=== PATIENT | male | born 1960 | race African-American/Black ===

== ENCOUNTER 2018-12-27 11:55 | Emergency (ER) | payer BC ==
[~2018-12-27] VITALS: Ht 167.6 cm; Wt 95.3 kg
[~2018-12-27 11:55] MED LIST: AFRIN120 MG; ALLERGY RELIEF10 M3; FLONASE 0.05%50 MCG; HYCODAN SYRUP480 ML PO; HYDROCHLOROTHIA25 M1; NAPROSYN500 MG; NAPROSYN500 MG PO; NORVASC 5 MG TAB5 MG; PREDNISONE 20 M20 M1 PO; PREDNISONE50 MG PO; PROAIR HFA8.5 GM; PROVENTIL HFA6.7 G1 INH; ROBITUSSIN DM118 ML; VENTOLIN HFA INH8 GM IH; ZOCOR 20 MG TAB20 M1; ZPAK PO
[2018-12-27] MEDS ORDERED: PRINIVIL20 MG PO (12:06)
[2018-12-27] MEDS ORDERED: ASMANEX HFA13 GM NASAL (12:08)
[2018-12-27] MEDS ORDERED: CLARITIN10 MG PO (12:09)
[2018-12-27] MEDS ORDERED: HYDROCHLOROTHIA25 M2 PO (12:10)
[2018-12-27] MEDS ORDERED: SINGULAIR 10 MG10 M1 PO (12:11)
[2018-12-27] MEDS ORDERED: LIPITOR40 MG PO (12:11)
[2018-12-27] MEDS ORDERED: ZANTAC 150MG T150 MG PO (12:11)
[2018-12-27] MEDS ORDERED: FLOVENT HFA 4444 MCG INH (12:13)
[2018-12-27] MEDS ORDERED: ZPAK PO (12:37)
[2018-12-27] MEDS ORDERED: PREDNISONE 20 M20 MG PO (12:37)
[2018-12-27 12:46] VITALS: BP 178/96
== END 2018-12-27 12:47 | disposition home or self-care (01) ==
LOC: M.ERS 11:55
DX: J45.901 Unspecified asthma with (acute) exacerbation (principal); I10 Essential (primary) hypertension; E78.5 Hyperlipidemia, unspecified; K21.9 Gastro-esophageal reflux disease without esophagitis

== ENCOUNTER 2019-07-09 08:23 | Emergency (ER) | payer BC ==
[~2019-07-09] VITALS: Ht 167.6 cm; Wt 90.7 kg
[~2019-07-09 08:23] MED LIST changes: +ASMANEX HFA13 GM NASAL; +CLARITIN10 MG PO; +FLOVENT HFA 4444 MCG INH; +HYDROCHLOROTHIA25 M2 PO; +LIPITOR40 MG PO; +PREDNISONE 20 M20 MG PO; +PRINIVIL20 MG PO; +SINGULAIR 10 MG10 M1 PO; +ZANTAC 150MG T150 MG PO
[2019-07-09] MEDS ORDERED: PREDNISONE50 MG PO (08:43)
[2019-07-09] MEDS ORDERED: AUGMENTIN 875-1 EACH PO (08:43)
[2019-07-09] MEDS ORDERED: VENTOLIN HFA 1818 GM INH (08:43)
[2019-07-09 09:05] VITALS: BP 148/84
== END 2019-07-09 09:06 | disposition home or self-care (01) ==
LOC: M.ERS 08:23
DX: J06.9 Acute upper respiratory infection, unspecified (principal); I10 Essential (primary) hypertension; K21.9 Gastro-esophageal reflux disease without esophagitis; E78.5 Hyperlipidemia, unspecified

== ENCOUNTER 2020-05-29 07:34 | Emergency (ER) | payer BC ==
[~2020-05-29] VITALS: Ht 167.6 cm; Wt 95.3 kg
[~2020-05-29 07:34] MED LIST changes: +AUGMENTIN 875-1 EACH PO; +VENTOLIN HFA 1818 GM INH
[2020-05-29] MEDS ORDERED: MELOXICAM15 MG PO (08:43)
[2020-05-29] MEDS ORDERED: MEDROLDOSEPACK PO (08:43)
[2020-05-29] MEDS ORDERED: ACETAMINOPHEN-1 EAC2 PO (08:44)
[2020-05-29 08:52] VITALS: BP 145/85
== END 2020-05-29 08:52 | disposition home or self-care (01) ==
LOC: M.ERS 07:34
DX: M25.511 Pain in right shoulder (principal); I10 Essential (primary) hypertension; E78.5 Hyperlipidemia, unspecified; K21.9 Gastro-esophageal reflux disease without esophagitis; J45.909 Unspecified asthma, uncomplicated

== ENCOUNTER 2020-07-08 18:41 | Emergency (ER) | payer BC ==
[~2020-07-08] VITALS: Ht 167.6 cm; Wt 98.0 kg
[~2020-07-08 18:41] MED LIST changes: +ACETAMINOPHEN-1 EAC2 PO; +MEDROLDOSEPACK PO; +MELOXICAM15 MG PO
[2020-07-08 19:05] LABS: HEMATOCRIT 42.6 % (42.0-52.0); HEMOGLOBIN 13.7 gm/dL (14.0-18.0); MCH 22.5 pg (26.0-34.0); MCHC 32.1 g/dL (28.0-37.0); MCV 70.2 fL (80.0-100.0); MPV 7.8 fl. (7.2-11.1); NUCLEATED RBCS 0 /100WBC; PLATELET COUNT* 277 thou/uL (150-400); RBC 6.07 mil/uL (4.50-6.00); RDW-CV 15.1 % (10.5-14.5); WBC 6.5 thou/uL (4.0-11.0)
[2020-07-08 19:13] LABS: CREATININE 1.5 mg/dL (0.6-1.3)
[2020-07-08 19:14] LABS: POTASSIUM 2.7 mmol/L (3.5-5.1)
[2020-07-08 19:17] LABS: ALBUMIN 3.9 g/dL (3.4-5.0); TOTAL BILIRUBIN 0.4 mg/dL (<0.1-1.0); TOTAL PROTEIN 7.7 g/dL (6.4-8.2)
[2020-07-08 19:25] LABS: ABSOLUTE EOSINOPHILS 0.1 thou/uL (0.0-0.7); ABSOLUTE LYMPHOCYTES 2.4 thou/uL (0.8-5.3); ABSOLUTE MONOCYTES 0.7 thou/uL (0.0-1.2); ABSOLUTE NEUTROPHILS 3.3 thou/uL (1.6-8.1); ATYPICAL LYMPHS 6 %
[2020-07-08 19:26] LABS: HYPOCHROMASIA 1+; PLATELET ESTIMATE ADEQUATE; POIKILOCYTOSIS 1+
[2020-07-08] MEDS ORDERED: NAPROSYN500 MG PO (19:58)
[2020-07-08] MEDS ORDERED: APAP W/CODEINE1 TA2 PO (19:58)
[2020-07-08] MEDS ORDERED: POTASSIUM20 PO (19:59)
[2020-07-08 20:19] VITALS: BP 162/93
--- NOTE | 2020-07-09 14:40 | EKG ---
[place] [address] ELECTROCARDIOGRAM REPORT Name: JABARI PASTOR Room: [facility]#: [id number] Admission: 07/08/20 Attend Phys: Discharge: 07/08/20 Date of : 62 Date of Service: 07/08/20 1849 Report #: [id number] THIS REPORT FOR: //name// [facility] ED Test Date: 2020-07-08 Test Time: 18:49:42 Pat Name: JABARI PASTOR Department: Room: Gender: Needleworker: PETROS : 1960 Requested By: Wilfredo Cai Order Number: [id number] MD: Suleiman Lam Measurements Intervals [place] Rate: 106 P: 47 RI: 157 QRS: 23 QRSD: 98 T: -9 QT: 351 QTc: 467 Interpretive Statements Sinus tachycardia Probable left atrial enlargement Abnormal R-wave progression, late transition Borderline T abnormalities, inferior leads Compared to ECG 01/06/2008 16:55:01 T-wave abnormality now present Sinus rhythm no longer present Electronically Signed On 07-09-2020 14:40:44 SUPERINTENDENT STEV[employer]ORING by Suleiman Lam [email or web address] <ELECTRONICALLY SIGNED> By: Suleiman Lam MD, FACC 07/09/20 1440 48 184 Suleiman Lam MD, FAC /EPI
== END 2020-07-08 20:19 | disposition home or self-care (01) ==
LOC: M.ERS 18:41
PROVIDERS: Physician Assistant
DX: M94.0 Chondrocostal junction syndrome [Tietze] (principal); E87.6 Hypokalemia; Z20.828 Contact with and (suspected) exposure to other viral communicable diseases; I10 Essential (primary) hypertension; E78.5 Hyperlipidemia, unspecified; K21.9 Gastro-esophageal reflux disease without esophagitis; J45.909 Unspecified asthma, uncomplicated

== ENCOUNTER 2020-12-25 03:21 | Emergency (ER) | payer BC ==
[~2020-12-25] VITALS: Ht 167.6 cm; Wt 96.2 kg
[~2020-12-25 03:21] MED LIST changes: +APAP W/CODEINE1 TA2 PO; +POTASSIUM20 PO
[2020-12-25 03:53] LABS: ABSOLUTE BASOPHILS 0.1 thou/uL (0.0-0.2); ABSOLUTE EOSINOPHILS 0.4 thou/uL (0.0-0.7); ABSOLUTE LYMPHOCYTES 2.3 thou/uL (0.8-5.3); ABSOLUTE MONOCYTES 0.9 thou/uL (0.0-1.2); ABSOLUTE NEUTROPHILS 2.6 thou/uL (1.6-8.1); BASOPHILS 0.9 %; EOSINOPHILS 5.7 %; HEMOGLOBIN 13.5 gm/dL (14.0-18.0); LYMPHOCYTES 37.1 %; MCH 23.4 pg (26.0-34.0); MCHC 33.1 g/dL (28.0-37.0); MCV 70.8 fL (80.0-100.0); MONOCYTES 13.9 %; MPV 7.8 fl. (7.2-11.1); NUCLEATED RBCS 0 /100WBC; PLATELET COUNT* 205 thou/uL (150-400); POLYS 42.4 %; RBC 5.79 mil/uL (4.50-6.00); RDW-CV 15.6 % (10.5-14.5); WBC 6.2 thou/uL (4.0-11.0)
[2020-12-25 04:02] LABS: CALCIUM 8.2 mg/dL (8.5-10.1); CREATININE 1.5 mg/dL (0.6-1.3); POTASSIUM 3.3 mmol/L (3.5-5.1)
[2020-12-25 04:13] LABS: ALBUMIN 3.6 g/dL (3.4-5.0); TOTAL BILIRUBIN 0.4 mg/dL (<0.1-1.0); TOTAL PROTEIN 7.2 g/dL (6.4-8.2)
[2020-12-25] MEDS ORDERED: PREDNISONE50 MG PO (06:05)
[2020-12-25] MEDS ORDERED: ALBUTEROL2.5 MG/31 INH (06:06)
[2020-12-25] MEDS ORDERED: NEBULIZER MISCELL (06:06)
[2020-12-25 06:24] VITALS: BP 153/79
[2020-12-25 07:40] LABS: PLATELET ESTIMATE ADEQUATE
--- NOTE | 2020-12-26 09:56 | EKG ---
[place] [address] ELECTROCARDIOGRAM REPORT Name: JABARI PASTOR [facility] [id number] Admission: 12/25/20 Attend Phys: Discharge: 12/25/20 Date of : 62 Date of Service: 12/25/20 0336 Report #: [id number] THIS REPORT FOR: //name// [facility] ED Test Date: 2020-12-25 Test Time: 03:36:59 Pat Name: JABARI PASTOR Department: Room: Gender: Concert Singer: : 1960 Requested By: Jessica Faria Order Number: [id number] MD: Norm Gonzalez Measurements Intervals [place] Rate: 102 P: 53 [place]: 148 QRS: 23 QRSD: 93 T: 37 QT: 338 QTc: 441 Interpretive Statements Sinus tachycardia Compared to ECG 07/08/2020 18:49:42 no change Electronically Signed On 12-26-2020 9:56:28 CDT by Norm Gonzalez [email or web address] <ELECTRONICALLY SIGNED> By: Norm Gonzalez MD, [facility] 12/26/20 0956 0336 0336 Norm Gonzalez MD, [facility] /EPI
== END 2020-12-25 06:25 | disposition home or self-care (01) ==
LOC: M.ERS 03:21
PROVIDERS: Emergency Medicine
DX: J45.909 Unspecified asthma, uncomplicated (principal); Z20.822 Contact with and (suspected) exposure to COVID-19; I10 Essential (primary) hypertension; E78.5 Hyperlipidemia, unspecified; K21.9 Gastro-esophageal reflux disease without esophagitis; Z79.899 Other long term (current) drug therapy